=== PATIENT | female | born 2000 | race African-American/Black ===

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

== ENCOUNTER 2022-08-24 21:02 | Emergency (ER) | payer BC ==
[~2022-08-24 21:02] MED LIST: Iopamidol 300 61% 100 ML VIAL FS ONE
[2022-08-24] MEDS ORDERED: Ondansetron PF 4 MG/2 ML Vial ONE (21:59)
[2022-08-24] MEDS ORDERED: Morphine 4 MG/ML VIAL ONE (21:59)
[2022-08-24 22:19] LABS: Hemoglobin 11.5 g/dL (12.0-15.5); Mean Corpuscular HGB CONC 32.7 g/dL (32.0-36.0); Mean Corpuscular Hemoglobin 26.5 pg (27.0-33.0); Mean Corpuscular Volume 81.1 fl (81.6-98.3); Mean Platelet Volume 9.3 fl (7.4-10.4); Platelet Count 372 10x3/uL (150-450); RBC Distribution Width 13.2 % (11.5-14.5); Red Blood Cell (RBC) Count 4.34 10x6/uL (3.90-5.03); White Blood Cell (WBC) Count 5.8 10x3/uL (3.5-10.5)
[2022-08-24 22:20] LABS: MDiff Complete? YES
[2022-08-24 22:24] LABS: BHCG - Serum Negative (NEGATIVE); Pregs Control Background? CLEAR/WHITE (CLR/WHITE); Pregs Control Bar Appear? YES (CONTROL BAR)
[2022-08-24 22:26] LABS: Bilirubin Neg (Negative); Blood, Urine 25 (Negative); Clarity Slightly Cloudy (Clear); Glucose, Urine (Dipstick) Normal (Negative); Ketone, Urine Negative (Negative); Leukocyte 500 (Negative); Nitrite Negative (Negative); Protein, Urine (Dipstick) 15 mg/dl (Neg-Trace); pH, Urine 6.5 (5.0-9.0)
[2022-08-24 22:27] LABS: Pregnancy Test - Urine (BHCG) Negative (Negative); Pregu Control Background? CLEAR/WHITE (CLR/WHITE); Pregu Control Bar Appear? YES (CONTROL BAR)
[2022-08-24 22:31] LABS: ALT (SGPT) Less than 6 U/L (8-55); AST (SGOT) 16 U/L (5-30); Albumin 4.2 g/dL (3.5-5.0); Alkaline Phosphatase 34 U/L (40-100); Anion Gap 14 mmol/L (10-20); BUN (Urea Nitrogen) 11 mg/dL (8.4-21.0); Bilirubin, Total 0.2 mg/dL (0.2-1.2); Calc. Creatinine Clearance 0 mL/min (70-130); Calcium 8.6 mg/dL (7.8-10.44); Carbon Dioxide 21 mmol/L (22-29); Chloride 106 mmol/L (98-107); Estimated GFR 80; Globulin 2.7 g/dL (2.4-3.5); Glucose 87 mg/dL (70-105); Potassium 3.7 mmol/L (3.5-5.1); Protein, Total 6.9 g/dL (6.0-8.3); Sodium 137 mmol/L (136-145)
[2022-08-24 22:50] LABS: Bacteria/HPF 1+ HPF (None Seen); RBC/HPF 0-3 HPF (0-3)
[2022-08-24] MEDS ORDERED: cefTRIAXone (ROCEPHIN) 1 GM VIAL ONE (23:25)
[2022-08-25 00:29] LABS: Eosinophils 1 % (0-10); Lymphocytes 70 % (28-48); Monocytes 2 % (0-4); Neutrophil 27 % (31-61); Platelet Morphology Comment Appears Adequate; RBC Morph Comment Within Normal Limits
== END 2022-08-24 23:50 | disposition home or self-care (01) ==
LOC: CSHERS 21:02
DX: N39.0 Urinary tract infection, site not specified (principal)
CPT/HCPCS: 74177; 80053; 81003; 81015; 81025; 83690; 84703; 85025; 96365; 96375; J0696; J2270; J2405; Q9967

== ENCOUNTER 2022-08-29 08:20 | Emergency (ER) | payer BC ==
[2022-08-29 08:45] LABS: Bilirubin Neg (Negative); Blood, Urine 250 (Negative); Clarity Slightly Cloudy (Clear); Glucose, Urine (Dipstick) Normal (Negative); Ketone, Urine 5 mg/dL (Negative); Leukocyte 25 (Negative); Nitrite Negative (Negative); Protein, Urine (Dipstick) 15 mg/dl (Neg-Trace); Urobilinogen Normal mg/dL (Less than 2)
[2022-08-29 08:48] LABS: Pregnancy Test - Urine (BHCG) Negative (Negative); Pregu Control Background? CLEAR/WHITE (CLR/WHITE); Pregu Control Bar Appear? YES (CONTROL BAR)
[2022-08-29] MEDS ORDERED: Ketorolac Tromethamine 30 MG/ML VIAL ONE (09:04)
[2022-08-29 09:09] LABS: Bacteria/HPF 2+ HPF (None Seen); RBC/HPF 21-50 HPF (0-3)
[2022-08-29 09:42] LABS: Hemoglobin 11.4 g/dL (12.0-15.5); Mean Corpuscular HGB CONC 32.1 g/dL (32.0-36.0); Mean Corpuscular Hemoglobin 26.6 pg (27.0-33.0); Mean Corpuscular Volume 82.9 fl (81.6-98.3); Mean Platelet Volume 8.9 fl (7.4-10.4); Platelet Count 342 10x3/uL (150-450); RBC Distribution Width 13.2 % (11.5-14.5); Red Blood Cell (RBC) Count 4.28 10x6/uL (3.90-5.03); White Blood Cell (WBC) Count 3.9 10x3/uL (3.5-10.5)
[2022-08-29 09:45] LABS: MDiff Complete? YES
[2022-08-29 09:52] LABS: ALT (SGPT) 7 U/L (8-55); AST (SGOT) 16 U/L (5-30); Alkaline Phosphatase 29 U/L (40-100); Anion Gap 12 mmol/L (10-20); BUN (Urea Nitrogen) 9 mg/dL (8.4-21.0); Bilirubin, Total 0.2 mg/dL (0.2-1.2); Calc. Creatinine Clearance 0 mL/min (70-130); Calcium 8.8 mg/dL (7.8-10.44); Carbon Dioxide 23 mmol/L (22-29); Chloride 105 mmol/L (98-107); Estimated GFR 74; Globulin 2.6 g/dL (2.4-3.5); Glucose 86 mg/dL (70-105); Lipase 25 U/L (8-78); Potassium 3.5 mmol/L (3.5-5.1); Protein, Total 6.6 g/dL (6.0-8.3); Sodium 136 mmol/L (136-145)
[2022-08-29 10:18] LABS: Eosinophils 2 % (0-10); Lymphocytes 61 % (28-48); Monocytes 2 % (0-4); Neutrophil 35 % (31-61)
[2022-08-29 10:19] LABS: Platelet Morphology Comment Appears Adequate; RBC Morph Comment Within Normal Limits
== END 2022-08-29 12:27 | disposition home or self-care (01) ==
LOC: CSHERS 08:20
DX: N30.01 Acute cystitis with hematuria (principal)
CPT/HCPCS: 76856; 80053; 81003; 81015; 81025; 83690; 85025; 87086; 96361; 96374; J1885